=== PATIENT | female | born 1940 | race Caucasian/White ===

== ENCOUNTER → 2016-09-21 | Outpatient (CLI) | payer MEDICARE, BC ==
--- NOTE | ~2016-09-21 | US37 ---
[facility] Service of [facility] RADIOLOGY TEXT RESULTS PATIENT: CHRIS VANN LOCATION: CNIV : 42 UNIT #: [id number] AGE: [address]: April Sow APRN SEX: F ORDER DR: [id number] [facility] [address] [place], [place] [address] [id number] O MR#: [id number] Acc #: [id number] NAME: CHRIS VANN : 1940 SEX: F STUDY DATE/TIME: 09/21/2016 14:17 UNIT: CNIV ROOM: STUDY DESCRIPTION: US Carotid W/Doppler Bilateral Attending Physician: April Sow A.P.R.N. Referring Physician: April Sow A.P.R.N. Ordering Physician: April Sow A.P.R.N. Primary Care Physician: April Sow A.P.R.N. MEDICAL IMAGING REPORT This report is preliminary unless electronic signature is present EXAM Carotid Doppler bilateral 09/21/2016 HISTORY Right carotid bruit on physical examination 09/10/2016. Hypertension. Evaluate for carotid stenosis. TECHNIQUE Morfin-scale carotid artery images were obtained as well as Doppler waveform spectral analysis and color flow Doppler imaging. The examination was interpreted according to NASCET criteria. FINDINGS There is no hemodynamically significant stenosis in either carotid artery. Peak systolic velocity in the right and left internal carotid arteries was 79 cm/sec and 74 cm/sec respectively. Antegrade blood flow is seen both vertebral arteries. IMPRESSION No hemodynamically significant stenosis in either carotid artery. Dictated by... Willis Cuevas M.D. THIS IS AN ELECTRONICALLY VERIFIED REPORT Willis Cuevas M.D. at 09/23/2016 8:17 AM KRT/dany TD: 09/21/2016 16:58 JOB #: [id number] [facility] RADIOLOGY TEXT RESULTS PATIENT: CHRIS VANN LOCATION: CNIV : 42 UNIT #: [id number] AGE: [address]: April Sow APRN SEX: F ORDER DR: MEDICAL IMAGING REPORT Page 1 of 1 COPY
== END | disposition home or self-care (01) ==
LOC: CNIV 13:37
DX: R09.89 Other specified symptoms and signs involving the circulatory and respiratory systems (principal)
CPT/HCPCS: 93880